=== PATIENT | female | born 1960 | race Hispanic/Latino ===

== ENCOUNTER → 2018-01-01 07:41 | Outpatient (CLI) | payer OTHER, SELFPAY | PROVIDERS: Family Provider Family Medicine; PCP Family Medicine; Visit Provider Family Medicine | DX: Z12.31 Encounter for screening mammogram for malignant neoplasm of breast (principal); Z53.9 Procedure and treatment not carried out, unspecified reason ==

== ENCOUNTER 2018-01-07 16:00 | Outpatient (RCR) | payer OTHER, SELFPAY ==
--- NOTE | 2017-11-11 10:15 | PT.OIE ---
Current Diagnoses Strain of muscle, fascia and tendon of lower back, initial encounter (11/10/17) Provider Visit Care Team Role Provider Type Krysten Aceves MD Attending Provider Non-Staff Family Provider Primary Care Provider Specialty: Medical Address: [place], [address] Email: Physical Therapy Initial Evaluation PT-OP-A Visit Information Start: 11/10/17 17:08 Freq: Status: Active Protocol: Document 11/10/17 17:09 EA (Rec: 11/10/17 17:22 EA [id number]) Out-Patient Physical Therapy Visit Information Visit Information Visit Type Initial Evaluation Visit Start Time 16:00 Visit Stop Time 16:45 Total Visit Minutes 45 Visit Number 1 PT-OP-B Current Condition Start: 11/10/17 17:08 Freq: Status: Active Protocol: Document 11/10/17 17:09 EA (Rec: 11/10/17 17:22 EA [id number]) Current Condition History of Current Condition Onset Date 6 months ago Current Complaints Difficulty with lifting d/t localized low back pain rated 4/10 History of Current Condition Pt reports low back pain gradually started after lifting injury; states pain intensifies when lifting frequency increases. Patient reports pain managed with resting; denies use of heating or cold compress. Patient reports no diganostic imaging since the pain started. Debies BLE loss of strength and abnormal sensation Pt medical history includes: Cronic neck pain, controlled HTN, depression. Prior Treatments and Tests None Future Testing and Treatments Planned None Treatment Goals Patient/Caregiver Goals Patient wants to be able to perform daily task without back pain. 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 Depression. PT-OP-C Subjective Start: 11/10/17 17:08 Freq: Status: Active Protocol: Document 11/10/17 17:09 EA (Rec: 11/10/17 17:22 EA [id number]) OP-PT Subjective Patient Comments Patient Comments Informant Daughter: Patient daughter reports patient c/o difficulty with daily task that requires lifitng due to localized back pain rated 4/10 . Patient Reported Progress Improving Patient Questionnaires Oswestry Low Back Index Oswestry Impairment 40 to 59% Impaired (Score 40- 59) PT-OP-J Posture/Palpation/Skin Start: 11/10/17 17:08 Freq: Status: Active Protocol: Document 11/10/17 17:09 EA (Rec: 11/10/17 17:39 EA [id number]) Posture Evaluation Position Standing L-Spine Posture Flattened Palpation Assessment Location One Palpation Location Paralumbars, QL Palpation Findings Soft Tissue Tightness Spasm Tenderness PT-OP-K Range of Motion Start: 11/10/17 17:08 Freq: Status: Active Protocol: Document 11/10/17 17:09 EA (Rec: 11/10/17 17:39 EA [id number]) Lumbar Spine Range of Motion Lumbar Spine Active Testing Position standing Flexion 40 Extension 20 Rotation Left 35 Rotation Right 35 Lateral Flexion Left 25 Lateral Flexion Right 25 ROM Limitations Soft Tissue Tightness Pain PT-OP-L Special Tests Start: 11/10/17 17:08 Freq: Status: Active Protocol: Document 11/10/17 17:09 EA (Rec: 11/10/17 17:39 EA [id number]) Special Tests Lumbar Spine Special Tests Other- 1 Test Results pain aggravates with prone active ext/ standing bending FWD Straight Leg Raise Test Results Pain increased at 75deg to low back bilat Vertical Spine Loading Test Results negative PT-OP-M Strength Start: 11/10/17 17:08 Freq: Status: Active Protocol: Document 11/10/17 17:09 EA (Rec: 11/10/17 17:39 EA [id number]) Trunk Strength Trunk Manual Muscle Testing Flexion 4- Good- Extension 3+ Fair+ Rotation Left 4 Good Rotation Right 4 Good Lateral Flexion Left 3+ Fair+ Lateral Flexion Right 3+ Fair+ Comments Strength test is limited by pain and therefore test is bias Hip Strength Hip Manual Muscle Testing Right Reason Not Measured WFL Left Reason Not Measured WFL PT-OP-Q Treatments Start: 11/10/17 17:08 Freq: Status: Active Protocol: Document 11/10/17 17:09 EA (Rec: 11/10/17 17:39 EA [id number]) Self-Care/Home Management Treatment Education Patient Education Body Mechanics Joint Protection Posture PT-OP-R Modalities Start: 11/10/17 17:08 Freq: Status: Active Protocol: Document 11/10/17 17:09 EA (Rec: 11/10/17 17:39 EA [id number]) Electric Stimulation Electric Stimulation Interferential Current (IFC) Body Location Paralumbars Duration (Minutes) 15 Contraction Type Normal Combined With Heat/Cold Hot Pack Hot Pack/Cold Pack Treatment Hot Pack Patient Position Prone PT-OP-T Assessment and Plan Start: 11/10/17 17:08 Freq: Status: Active Protocol: Document 11/10/17 17:09 EA (Rec: 11/10/17 17:39 EA [id number]) Physical Therapy Assessment Rehab Potential Rehabilitation Potential Good Evaluation Complexity Number of Personal Factors/Comorbidities 1-2 Number of Body Systems Impaired 1-2 Clinical Presentation at Evaluation Stable Impairments Impairments Activity Tolerance Functional Activities Pain Posture ROM Strength Other Concerns Barriers to Rehabilitation Patient ability to comply with HEP d/t language issues. Goals Four Impairment Minimal understanding with proper body mechanics and changing position Customer Relations Representative Goal (LTG) Patient will exhibit hig understanding with proper body mechanics in lifting and changing position LTG Duration 4 wks Three Impairment Grade 2 tenderness to paralumbars, QL [facility] Goal (LTG) Patient will exhibit No tenderness to lower back to improve functional mobility LTG Duration 4 wks Two Impairment Less than 10 minutes sitting tolerance Customer Relations Representative Goal (LTG) Patient will increase sitting tolerance to > 20 minutes with minimal to no pain LTG Duration 5 wks One Impairment Difficulty with floor to waist lifting due to low back pain PS of 4/10 Customer Relations Representative Goal (LTG) Patient will perform floor - waist lifting < 10 lbs w/ proper mechanics with less than 2/10 pain scale LTG Duration 4 wks Assessment Summary Assessment Pleasant 57 y/o F patient who 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 Patient may suffered from muscular strain based on medical history and special tests and mechanism of injury. Patient would benefit with skilled PT to address the aforementioned issues and be able to resume back to previous level of function. Physical Therapy Plan Frequency and Duration Frequency of Treatment 2x/Week Plan of Care Start Date 11/10/17 Plan of Care End Date 01/05/18 Therapeutic Interventions Therapeutic Interventions Home Exercise Program Joint Mobilizations Manual Therapy Patient/Caregiver Education Self-Care/Home Management Soft Tissue Mobilization Therapeutic Exercises Modalities Cold Pack/Ice Massage Electric Stimulation Hot Packs Ultrasound Next Visit Focus/Plan Next Note Type Treatment Note Next Visit Plan HEP, Back education, analgesia treatments, flexibility.
--- NOTE | 2017-11-11 10:16 | PT.OPPOC ---
Current Diagnoses Strain of muscle, fascia and tendon of lower back, initial encounter (11/10/17) Provider Visit Care Team Role Provider Type Krysten Aceves MD Attending Provider Non-Staff Family Provider Primary Care Provider Specialty: Medical Address: [address] [place] [address], [id number] Email: Plan Of Care PT-OP-T Assessment and Plan Start: 11/10/17 17:08 Freq: Status: Active Protocol: Document 11/10/17 17:09 DIANNA (Rec: 11/10/17 17:39 EA [id number]) Physical Therapy Assessment Rehab Potential Rehabilitation Potential Good Evaluation Complexity Number of Personal Factors/Comorbidities 1-2 Number of Body Systems Impaired 1-2 Clinical Presentation at Evaluation Stable Impairments Impairments Activity Tolerance Functional Activities Pain Posture ROM Strength Other Concerns Barriers to Rehabilitation Patient ability to comply with HEP d/t language issues. Goals Four Impairment Minimal understanding with proper body mechanics and changing position [employer] [place] Goal (LTG) Patient will exhibit hig understanding with proper body mechanics in lifting and changing position LTG Duration 4 wks Three Impairment Grade 2 tenderness to paralumbars, QL [facility] Goal (LTG) Patient will exhibit No tenderness to lower back to improve functional mobility LTG Duration 4 wks Two Impairment Less than 10 minutes sitting tolerance [employer] [place] Goal (LTG) Patient will increase sitting tolerance to > 20 minutes with minimal to no pain LTG Duration 5 wks One Impairment Difficulty with floor to waist lifting due to low back pain PS of 4/10 [facility] Goal (LTG) Patient will perform floor - waist lifting < 10 lbs w/ proper mechanics with less than 2/10 pain scale LTG Duration 4 wks Assessment Summary Assessment Pleasant 57 y/o F patient who 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 Patient may suffered from muscular strain based on medical history and special tests and mechanism of injury. Patient would benefit with skilled PT to address the aforementioned issues and be able to resume back to previous level of function. Physical Therapy Plan Frequency and Duration Frequency of Treatment 2x/Week Plan of Care Start Date 11/10/17 Plan of Care End Date 01/05/18 Therapeutic Interventions Therapeutic Interventions Home Exercise Program Joint Mobilizations Manual Therapy Patient/Caregiver Education Self-Care/Home Management Soft Tissue Mobilization Therapeutic Exercises Modalities Cold Pack/Ice Massage Electric Stimulation Hot Packs Ultrasound Next Visit Focus/Plan Next Note Type Treatment Note Next Visit Plan HEP, Back education, analgesia treatments, flexibility. Plan of Care Dates Plan of Care Start Date 11/10/17 Plan of Care End Date 01/05/18 Please Sign and Return: I have reviewed this Plan of Care and certify that the skilled therapy services above are required to meet the patient?s needs. Physician Signature Date Printed Name and Credentials Clinical Instructor Signature Printed Name and Credentials
--- NOTE | 2017-11-16 12:08 | PT.OTN ---
Current Diagnoses Strain of muscle, fascia and tendon of lower back, initial encounter (11/16/17) Physical Therapy Treatment Note PT-OP-A Visit Information Start: 11/10/17 17:08 Freq: Status: Active Protocol: Document 11/16/17 08:36 EA (Rec: 11/16/17 09:01 EA [id number]) Out-Patient Physical Therapy Visit Information Visit Information Visit Type Treatment Note Visit Start Time 08:15 Visit Stop Time 08:45 Total Visit Minutes 45 Visit Number 2 PT-OP-B Current Condition Start: 11/10/17 17:08 Freq: Status: Active Protocol: Document 11/10/17 17:09 EA (Rec: 11/10/17 17:22 EA [id number]) Current Condition History of Current Condition Onset Date 6 months ago Current Complaints Difficulty with lifting d/t localized low back pain rated 4/10 History of Current Condition Pt reports low back pain gradually started after lifting injury; states pain intensifies when lifting frequency increases. Patient reports pain managed with resting; denies use of heating or cold compress. Patient reports no diganostic imaging since the pain started. Debies BLE loss of strength and abnormal sensation Pt medical history includes: Cronic neck pain, controlled HTN, depression. Prior Treatments and Tests None Future Testing and Treatments Planned None Treatment Goals Patient/Caregiver Goals Patient wants to be able to perform daily task without back pain. 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 Depression. PT-OP-C Subjective Start: 11/10/17 17:08 Freq: Status: Active Protocol: Document 11/16/17 08:36 EA (Rec: 11/16/17 09:01 EA [id number]) OP-PT Subjective Patient Comments Patient Comments Patient reports low back pain increased when sleeping on stomach. Patient Reported Progress Same PT-OP-J Posture/Palpation/Skin Start: 11/10/17 17:08 Freq: Status: Active Protocol: Document 11/10/17 17:09 EA (Rec: 11/10/17 17:39 EA [id number]) Posture Evaluation Position Standing L-Spine Posture Flattened Palpation Assessment Location One Palpation Location Paralumbars, QL Palpation Findings Soft Tissue Tightness Spasm Tenderness PT-OP-K Range of Motion Start: 11/10/17 17:08 Freq: Status: Active Protocol: Document 11/10/17 17:09 EA (Rec: 11/10/17 17:39 EA [id number]) Lumbar Spine Range of Motion Lumbar Spine Active Testing Position standing Flexion 40 Extension 20 Rotation Left 35 Rotation Right 35 Lateral Flexion Left 25 Lateral Flexion Right 25 ROM Limitations Soft Tissue Tightness Pain PT-OP-L Special Tests Start: 11/10/17 17:08 Freq: Status: Active Protocol: Document 11/10/17 17:09 EA (Rec: 11/10/17 17:39 EA [id number]) Special Tests Lumbar Spine Special Tests Other- 1 Test Results pain aggravates with prone active ext/ standing bending FWD Straight Leg Raise Test Results Pain increased at 75deg to low back bilat Vertical Spine Loading Test Results negative PT-OP-M Strength Start: 11/10/17 17:08 Freq: Status: Active Protocol: Document 11/10/17 17:09 EA (Rec: 11/10/17 17:39 EA [id number]) Trunk Strength Trunk Manual Muscle Testing Flexion 4- Good- Extension 3+ Fair+ Rotation Left 4 Good Rotation Right 4 Good Lateral Flexion Left 3+ Fair+ Lateral Flexion Right 3+ Fair+ Comments Strength test is limited by pain and therefore test is bias Hip Strength Hip Manual Muscle Testing Right Reason Not Measured WFL Left Reason Not Measured WFL PT-OP-Q Treatments Start: 11/10/17 17:08 Freq: Status: Active Protocol: Document 11/16/17 08:36 EA (Rec: 11/16/17 09:01 EA [id number]) Cardio Equipment Recumbent Stepper (Sci-Fit) Duration (Minutes) 6 Resistance 1 Seat Position 8 Therapeutic Exercises Supine Exercises 5 Supine Exercise Name Lower trunk rotation with knee bent Side bilateral Reps/Minutes x 10 reps 4 Supine Exercise Name PPT with partial sit up with single leg raises Reps/Minutes x 5SH x 5 reps 3 Supine Exercise Name PPT Reps/Minutes x 5SH x 5 reps 2 Supine Exercise Name Partial sit up with PPT 1 Supine Exercise Name SKTC to DKTC Reps/Minutes x 5 SH x 5 reps Standing Exercises 2 Standing Exercise Name floor to waist lifitng with good body mechanics Resistance x 7 lbs Reps/Minutes x 3 reps 1 Standing Exercise Name sit to stand on 18 table with arm cross to chest Reps/Minutes 10 reps Manual Therapy Treatment Soft Tissue Mobilization 1 Mobilization Type Myofascial Release Sustained Pressure Intensity/Depth Moderate Body Position Prone PT-OP-R Modalities Start: 11/10/17 17:08 Freq: Status: Active Protocol: Document 11/16/17 08:36 EA (Rec: 11/16/17 09:01 EA [id number]) Electric Stimulation Electric Stimulation Interferential Current (IFC) Body Location paralumbars Duration (Minutes) 15 Patient Position Prone Combined With Heat/Cold Hot Pack Comments pillow under stomach PT-OP-T Assessment and Plan Start: 11/10/17 17:08 Freq: Status: Active Protocol: Document 11/16/17 08:36 EA (Rec: 11/16/17 09:01 EA [id number]) Physical Therapy Assessment Assessment Summary Assessment Tolerated treatment well; HEP were given with daughter to translate. Advised patient to seek doctor note for work task adjsutment as required. Physical Therapy Plan Next Visit Focus/Plan Next Note Type Treatment Note Next Visit Plan Cont with current plan.
--- NOTE | 2017-11-19 12:13 | PT.OTN ---
Current Diagnoses Strain of muscle, fascia and tendon of lower back, initial encounter (11/19/17) Physical Therapy Treatment Note PT-OP-A Visit Information Start: 11/10/17 17:08 Freq: Status: Active Protocol: Document 11/19/17 08:20 EA (Rec: 11/19/17 08:54 EA [id number]) Out-Patient Physical Therapy Visit Information Visit Information Visit Type Treatment Note Visit Start Time 08:15 Visit Stop Time 09:00 Total Visit Minutes 45 Visit Number 3 PT-OP-B Current Condition Start: 11/10/17 17:08 Freq: Status: Active Protocol: Document 11/10/17 17:09 EA (Rec: 11/10/17 17:22 EA [id number]) Current Condition History of Current Condition Onset Date 6 months ago Current Complaints Difficulty with lifting d/t localized low back pain rated 4/10 History of Current Condition Pt reports low back pain gradually started after lifting injury; states pain intensifies when lifting frequency increases. Patient reports pain managed with resting; denies use of heating or cold compress. Patient reports no diganostic imaging since the pain started. Debies BLE loss of strength and abnormal sensation Pt medical history includes: Cronic neck pain, controlled HTN, depression. Prior Treatments and Tests None Future Testing and Treatments Planned None Treatment Goals Patient/Caregiver Goals Patient wants to be able to perform daily task without back pain. 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 Depression. PT-OP-C Subjective Start: 11/10/17 17:08 Freq: Status: Active Protocol: Document 11/19/17 08:20 EA (Rec: 11/19/17 08:54 EA [id number]) OP-PT Subjective Patient Comments Patient Comments Patient reports low back is improving at this time and she has been following proper body lifting mechanics. Patient Reported Progress Improving PT-OP-J Posture/Palpation/Skin Start: 11/10/17 17:08 Freq: Status: Active Protocol: Document 11/10/17 17:09 EA (Rec: 11/10/17 17:39 EA [id number]) Posture Evaluation Position Standing L-Spine Posture Flattened Palpation Assessment Location One Palpation Location Paralumbars, QL Palpation Findings Soft Tissue Tightness Spasm Tenderness PT-OP-K Range of Motion Start: 11/10/17 17:08 Freq: Status: Active Protocol: Document 11/10/17 17:09 EA (Rec: 11/10/17 17:39 EA [id number]) Lumbar Spine Range of Motion Lumbar Spine Active Testing Position standing Flexion 40 Extension 20 Rotation Left 35 Rotation Right 35 Lateral Flexion Left 25 Lateral Flexion Right 25 ROM Limitations Soft Tissue Tightness Pain PT-OP-L Special Tests Start: 11/10/17 17:08 Freq: Status: Active Protocol: Document 11/10/17 17:09 EA (Rec: 11/10/17 17:39 EA [id number]) Special Tests Lumbar Spine Special Tests Other- 1 Test Results pain aggravates with prone active ext/ standing bending FWD Straight Leg Raise Test Results Pain increased at 75deg to low back bilat Vertical Spine Loading Test Results negative PT-OP-M Strength Start: 11/10/17 17:08 Freq: Status: Active Protocol: Document 11/10/17 17:09 EA (Rec: 11/10/17 17:39 EA [id number]) Trunk Strength Trunk Manual Muscle Testing Flexion 4- Good- Extension 3+ Fair+ Rotation Left 4 Good Rotation Right 4 Good Lateral Flexion Left 3+ Fair+ Lateral Flexion Right 3+ Fair+ Comments Strength test is limited by pain and therefore test is bias Hip Strength Hip Manual Muscle Testing Right Reason Not Measured WFL Left Reason Not Measured WFL PT-OP-Q Treatments Start: 11/10/17 17:08 Freq: Status: Active Protocol: Document 11/19/17 08:20 EA (Rec: 11/19/17 08:54 EA [id number]) Cardio Equipment Recumbent Stepper (Sci-Fit) Duration (Minutes) 6 Resistance 1 Seat Position 8 Therapeutic Exercises Supine Exercises 5 Supine Exercise Name Lower trunk rotation with knee bent Side bilateral Reps/Minutes x 10 reps 4 Supine Exercise Name PPT with partial sit up with single leg raises Reps/Minutes x 5SH x 5 reps 3 Supine Exercise Name PPT and marching Reps/Minutes x 5SH x 5 reps 2 Supine Exercise Name Partial sit up with PPT 1 Supine Exercise Name SKTC to DKTC Reps/Minutes x 5 SH x 5 reps Standing Exercises 2 Standing Exercise Name wall squat with PPT Reps/Minutes x 5sh x 5 reps x 2 sets 1 Standing Exercise Name sit to stand on 18 table with arm cross to chest Reps/Minutes 10 reps Manual Therapy Treatment Soft Tissue Mobilization 1 Mobilization Type Myofascial Release Sustained Pressure Intensity/Depth Moderate Body Position Prone PT-OP-R Modalities Start: 11/10/17 17:08 Freq: Status: Active Protocol: Document 11/19/17 08:54 EA (Rec: 11/19/17 08:55 EA [id number]) Electric Stimulation Electric Stimulation Interferential Current (IFC) Body Location paralumbars Duration (Minutes) 15 Patient Position Prone Combined With Heat/Cold Hot Pack Comments pillow under stomach PT-OP-T Assessment and Plan Start: 11/10/17 17:08 Freq: Status: Active Protocol: Document 11/19/17 08:20 EA (Rec: 11/19/17 08:54 EA [id number]) Physical Therapy Assessment Assessment Summary Assessment Tolerated treatment well. Noted less tender to paralumbars and upper gluteals . Patient is progressing well . Cont with current plan. Advance as tolerated. Physical Therapy Plan Next Visit Focus/Plan Next Note Type Treatment Note Next Visit Plan Advance as tolerated.
--- NOTE | 2017-11-24 16:09 | PT.OTN ---
Current Diagnoses Strain of muscle, fascia and tendon of lower back, initial encounter (11/24/17) Physical Therapy Treatment Note PT-OP-A Visit Information Start: 11/10/17 17:08 Freq: Status: Active Protocol: Document 11/24/17 15:20 EA (Rec: 11/24/17 15:52 EA [id number]) Out-Patient Physical Therapy Visit Information Visit Information Visit Type Treatment Note Visit Start Time 15:15 Visit Stop Time 16:00 Total Visit Minutes 45 Visit Number 3 PT-OP-B Current Condition Start: 11/10/17 17:08 Freq: Status: Active Protocol: Document 11/10/17 17:09 EA (Rec: 11/10/17 17:22 EA [id number]) Current Condition History of Current Condition Onset Date 6 months ago Current Complaints Difficulty with lifting d/t localized low back pain rated 4/10 History of Current Condition Pt reports low back pain gradually started after lifting injury; states pain intensifies when lifting frequency increases. Patient reports pain managed with resting; denies use of heating or cold compress. Patient reports no diganostic imaging since the pain started. Debies BLE loss of strength and abnormal sensation Pt medical history includes: Cronic neck pain, controlled HTN, depression. Prior Treatments and Tests None Future Testing and Treatments Planned None Treatment Goals Patient/Caregiver Goals Patient wants to be able to perform daily task without back pain. 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 Depression. PT-OP-C Subjective Start: 11/10/17 17:08 Freq: Status: Active Protocol: Document 11/24/17 15:20 EA (Rec: 11/24/17 15:52 EA [id number]) OP-PT Subjective Patient Comments Patient Comments Pt reports much less pain at this time; states that she is much feeling better. Patient Reported Progress Improving PT-OP-J Posture/Palpation/Skin Start: 11/10/17 17:08 Freq: Status: Active Protocol: Document 11/10/17 17:09 EA (Rec: 11/10/17 17:39 EA [id number]) Posture Evaluation Position Standing L-Spine Posture Flattened Palpation Assessment Location One Palpation Location [place], QL Palpation Findings Soft Tissue Tightness Spasm Tenderness PT-OP-K Range of Motion Start: 11/10/17 17:08 Freq: Status: Active Protocol: Document 11/10/17 17:09 EA (Rec: 11/10/17 17:39 EA [id number]) Lumbar Spine Range of Motion Lumbar Spine Active Testing Position standing Flexion 40 Extension 20 Rotation Left 35 Rotation Right 35 Lateral Flexion Left 25 Lateral Flexion Right 25 ROM Limitations Soft Tissue Tightness Pain PT-OP-L Special Tests Start: 11/10/17 17:08 Freq: Status: Active Protocol: Document 11/10/17 17:09 EA (Rec: 11/10/17 17:39 EA [id number]) Special Tests Lumbar Spine Special Tests Other- 1 Test Results pain aggravates with prone active ext/ standing bending FWD Straight Leg Raise Test Results Pain increased at 75deg to low back bilat Vertical Spine Loading Test Results negative PT-OP-M Strength Start: 11/10/17 17:08 Freq: Status: Active Protocol: Document 11/10/17 17:09 EA (Rec: 11/10/17 17:39 EA [id number]) Trunk Strength Trunk Manual Muscle Testing Flexion 4- Good- Extension 3+ Fair+ Rotation Left 4 Good Rotation Right 4 Good Lateral Flexion Left 3+ Fair+ Lateral Flexion Right 3+ Fair+ Comments Strength test is limited by pain and therefore test is bias Hip Strength Hip Manual Muscle Testing Right Reason Not Measured WFL Left Reason Not Measured WFL PT-OP-Q Treatments Start: 11/10/17 17:08 Freq: Status: Active Protocol: Document 11/24/17 15:20 EA (Rec: 11/24/17 15:52 EA [id number]) Cardio Equipment Recumbent Stepper (Sci-Fit) Duration (Minutes) 6 Resistance 1 Seat Position 8 Therapeutic Exercises Supine Exercises 5 Supine Exercise Name Lower trunk rotation with knee bent Side bilateral Reps/Minutes x 10 reps 4 Supine Exercise Name PPT with partial sit up with single leg raises Reps/Minutes x 5SH x 5 reps 3 Supine Exercise Name PPT and marching Reps/Minutes x 5SH x 5 reps 2 Supine Exercise Name Partial sit up with PPT 1 Supine Exercise Name SKTC to DKTC Reps/Minutes x 5 SH x 5 reps Standing Exercises 3 Standing Exercise Name floor to waist lift Resistance 10-20lbs Reps/Minutes x 5 x 2 sets 2 Standing Exercise Name wall squat with PPT Reps/Minutes x 5sh x 5 reps x 2 sets 1 Standing Exercise Name sit to stand on 18 table with arm cross to chest Reps/Minutes 10 reps Manual Therapy Treatment Soft Tissue Mobilization 1 Mobilization Type Myofascial Release Sustained Pressure Intensity/Depth Moderate Body Position Prone PT-OP-R Modalities Start: 11/10/17 17:08 Freq: Status: Active Protocol: Document 11/24/17 15:20 EA (Rec: 11/24/17 15:52 EA [id number]) Electric Stimulation Electric Stimulation Interferential Current (IFC) Body Location paralumbars Duration (Minutes) 15 Patient Position Prone Combined With Heat/Cold Hot Pack Comments pillow under stomach PT-OP-T Assessment and Plan Start: 11/10/17 17:08 Freq: Status: Active Protocol: Document 11/24/17 15:20 EA (Rec: 11/24/17 15:52 EA [id number]) Physical Therapy Assessment Assessment Summary Assessment Pt is progressing well as to functional mobility at home and at work. Patient to see after 1 week. Physical Therapy Plan Next Visit Focus/Plan Next Note Type Treatment Note Next Visit Plan Advance as tolerated.
--- NOTE | 2017-12-01 16:09 | PT.OTN ---
Current Diagnoses Strain of muscle, fascia and tendon of lower back, initial encounter (12/01/17) Physical Therapy Treatment Note PT-OP-A Visit Information Start: 11/10/17 17:08 Freq: Status: Active Protocol: Document 12/01/17 15:55 EA (Rec: 12/01/17 16:07 EA [id number]) Out-Patient Physical Therapy Visit Information Visit Information Visit Type Treatment Note Visit Start Time 15:15 Visit Stop Time 16:00 Total Visit Minutes 45 Visit Number 5 PT-OP-B Current Condition Start: 11/10/17 17:08 Freq: Status: Active Protocol: Document 11/10/17 17:09 EA (Rec: 11/10/17 17:22 EA [id number]) Current Condition History of Current Condition Onset Date 6 months ago Current Complaints Difficulty with lifting d/t localized low back pain rated 4/10 History of Current Condition Pt reports low back pain gradually started after lifting injury; states pain intensifies when lifting frequency increases. Patient reports pain managed with resting; denies use of heating or cold compress. Patient reports no diganostic imaging since the pain started. Debies BLE loss of strength and abnormal sensation Pt medical history includes: Cronic neck pain, controlled HTN, depression. Prior Treatments and Tests None Future Testing and Treatments Planned None Treatment Goals Patient/Caregiver Goals Patient wants to be able to perform daily task without back pain. 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 Depression. PT-OP-C Subjective Start: 11/10/17 17:08 Freq: Status: Active Protocol: Document 12/01/17 15:55 EA (Rec: 12/01/17 16:07 EA [id number]) OP-PT Subjective Patient Comments Patient Comments Pt reports that she hurt her low back again at work after lifting with rotation yesterday. Denies loss of function to both LE and numbness/tingling sensation. Patient Reported Progress Same PT-OP-J Posture/Palpation/Skin Start: 11/10/17 17:08 Freq: Status: Active Protocol: Document 11/10/17 17:09 EA (Rec: 11/10/17 17:39 EA [id number]) Posture Evaluation Position Standing L-Spine Posture Flattened Palpation Assessment Location One Palpation Location [place], QL Palpation Findings Soft Tissue Tightness Spasm Tenderness PT-OP-K Range of Motion Start: 11/10/17 17:08 Freq: Status: Active Protocol: Document 11/10/17 17:09 EA (Rec: 11/10/17 17:39 EA [id number]) Lumbar Spine Range of Motion Lumbar Spine Active Testing Position standing Flexion 40 Extension 20 Rotation Left 35 Rotation Right 35 Lateral Flexion Left 25 Lateral Flexion Right 25 ROM Limitations Soft Tissue Tightness Pain PT-OP-L Special Tests Start: 11/10/17 17:08 Freq: Status: Active Protocol: Document 11/10/17 17:09 EA (Rec: 11/10/17 17:39 EA [id number]) Special Tests Lumbar Spine Special Tests Other- 1 Test Results pain aggravates with prone active ext/ standing bending FWD Straight Leg Raise Test Results Pain increased at 75deg to low back bilat Vertical Spine Loading Test Results negative PT-OP-M Strength Start: 11/10/17 17:08 Freq: Status: Active Protocol: Document 11/10/17 17:09 EA (Rec: 11/10/17 17:39 EA [id number]) Trunk Strength Trunk Manual Muscle Testing Flexion 4- Good- Extension 3+ Fair+ Rotation Left 4 Good Rotation Right 4 Good Lateral Flexion Left 3+ Fair+ Lateral Flexion Right 3+ Fair+ Comments Strength test is limited by pain and therefore test is bias Hip Strength Hip Manual Muscle Testing Right Reason Not Measured WFL Left Reason Not Measured WFL PT-OP-Q Treatments Start: 11/10/17 17:08 Freq: Status: Active Protocol: Document 12/01/17 15:55 EA (Rec: 12/01/17 16:07 EA [id number]) Therapeutic Exercises Supine Exercises 5 Supine Exercise Name Lower trunk rotation with knee bent Side bilateral Reps/Minutes x 10 reps 4 Supine Exercise Name PPT with partial sit up with single leg raises Reps/Minutes x 5SH x 5 reps 1 Supine Exercise Name SKTC to DKTC Reps/Minutes x 5 SH x 5 reps Manual Therapy Treatment Soft Tissue Mobilization 1 Mobilization Type Myofascial Release Sustained Pressure Intensity/Depth Moderate Body Position Prone PT-OP-R Modalities Start: 11/10/17 17:08 Freq: Status: Active Protocol: Document 12/01/17 15:55 EA (Rec: 12/01/17 16:07 EA [id number]) Electric Stimulation Electric Stimulation Interferential Current (IFC) Body Location paralumbars Duration (Minutes) 15 Patient Position Prone Combined With Heat/Cold Hot Pack Comments pillow under stomach PT-OP-T Assessment and Plan Start: 11/10/17 17:08 Freq: Status: Active Protocol: Document 12/01/17 15:55 EA (Rec: 12/01/17 16:07 EA [id number]) Physical Therapy Assessment Assessment Summary Assessment Quick assessment performed and reveals grade 2 tenderness recurrence to right paraspinal ; no signs of nerve involvement. Patient was re- educated again with lifting mechanics and advised to no more than 10 lbs lifting up to weeks with letter to carry at work. Patient was advised to apply ice at home. Patient understood recommendation with the help of her daughter. Physical Therapy Plan Next Visit Focus/Plan Next Note Type Treatment Note Next Visit Plan Cont with current treatment
--- NOTE | 2017-12-08 17:33 | PT.OTN ---
Current Diagnoses Strain of muscle, fascia and tendon of lower back, initial encounter (12/08/17) Physical Therapy Treatment Note PT-OP-A Visit Information Start: 11/10/17 17:08 Freq: Status: Active Protocol: Document 12/08/17 15:22 EA (Rec: 12/08/17 15:50 EA [id number]) Out-Patient Physical Therapy Visit Information Visit Information Visit Type Treatment Note Visit Start Time 15:15 Visit Stop Time 16:00 Total Visit Minutes 45 Visit Number 5 PT-OP-B Current Condition Start: 11/10/17 17:08 Freq: Status: Active Protocol: Document 11/10/17 17:09 EA (Rec: 11/10/17 17:22 EA [id number]) Current Condition History of Current Condition Onset Date 6 months ago Current Complaints Difficulty with lifting d/t localized low back pain rated 4/10 History of Current Condition Pt reports low back pain gradually started after lifting injury; states pain intensifies when lifting frequency increases. Patient reports pain managed with resting; denies use of heating or cold compress. Patient reports no diganostic imaging since the pain started. Debies BLE loss of strength and abnormal sensation Pt medical history includes: Cronic neck pain, controlled HTN, depression. Prior Treatments and Tests None Future Testing and Treatments Planned None Treatment Goals Patient/Caregiver Goals Patient wants to be able to perform daily task without back pain. 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 Depression. PT-OP-C Subjective Start: 11/10/17 17:08 Freq: Status: Active Protocol: Document 12/08/17 15:51 EA (Rec: 12/08/17 15:52 EA [id number]) OP-PT Subjective Patient Comments Patient Comments Patient reports low back pain complaint is improving; states pain rated 3/10. Denies radiation to both legs. Patient Reported Progress Improving PT-OP-J Posture/Palpation/Skin Start: 11/10/17 17:08 Freq: Status: Active Protocol: Document 11/10/17 17:09 EA (Rec: 11/10/17 17:39 EA [id number]) Posture Evaluation Position Standing L-Spine Posture Flattened Palpation Assessment Location One Palpation Location [place], QL Palpation Findings Soft Tissue Tightness Spasm Tenderness PT-OP-K Range of Motion Start: 11/10/17 17:08 Freq: Status: Active Protocol: Document 11/10/17 17:09 EA (Rec: 11/10/17 17:39 EA [id number]) Lumbar Spine Range of Motion Lumbar Spine Active Testing Position standing Flexion 40 Extension 20 Rotation Left 35 Rotation Right 35 Lateral Flexion Left 25 Lateral Flexion Right 25 ROM Limitations Soft Tissue Tightness Pain PT-OP-L Special Tests Start: 11/10/17 17:08 Freq: Status: Active Protocol: Document 11/10/17 17:09 EA (Rec: 11/10/17 17:39 EA [id number]) Special Tests Lumbar Spine Special Tests Other- 1 Test Results pain aggravates with prone active ext/ standing bending FWD Straight Leg Raise Test Results Pain increased at 75deg to low back bilat Vertical Spine Loading Test Results negative PT-OP-M Strength Start: 11/10/17 17:08 Freq: Status: Active Protocol: Document 11/10/17 17:09 EA (Rec: 11/10/17 17:39 EA [id number]) Trunk Strength Trunk Manual Muscle Testing Flexion 4- Good- Extension 3+ Fair+ Rotation Left 4 Good Rotation Right 4 Good Lateral Flexion Left 3+ Fair+ Lateral Flexion Right 3+ Fair+ Comments Strength test is limited by pain and therefore test is bias Hip Strength Hip Manual Muscle Testing Right Reason Not Measured WFL Left Reason Not Measured WFL PT-OP-Q Treatments Start: 11/10/17 17:08 Freq: Status: Active Protocol: Document 12/08/17 15:22 EA (Rec: 12/08/17 15:50 EA [id number]) Therapeutic Exercises Supine Exercises 5 Supine Exercise Name Lower trunk rotation with knee bent Side bilateral Reps/Minutes x 10 reps 4 Supine Exercise Name PPT with partial sit up with single leg raises Reps/Minutes x 5SH x 5 reps 3 Supine Exercise Name PPT and marching Reps/Minutes x 5SH x 5 reps 2 Supine Exercise Name Partial sit up with PPT 1 Supine Exercise Name SKTC to DKTC Reps/Minutes x 5 SH x 5 reps Standing Exercises 2 Standing Exercise Name wall squat with PPT Reps/Minutes x 5sh x 5 reps x 2 sets 1 Standing Exercise Name sit to stand on 18 table with arm cross to chest Reps/Minutes 10 reps Manual Therapy Treatment Soft Tissue Mobilization 1 Mobilization Type Myofascial Release Sustained Pressure Intensity/Depth Moderate Body Position Prone PT-OP-R Modalities Start: 11/10/17 17:08 Freq: Status: Active Protocol: Document 12/08/17 15:22 EA (Rec: 12/08/17 15:50 EA [id number]) Electric Stimulation Electric Stimulation Interferential Current (IFC) Body Location paralumbars Duration (Minutes) 15 Patient Position Prone Combined With Heat/Cold Hot Pack Comments pillow under stomach PT-OP-T Assessment and Plan Start: 11/10/17 17:08 Freq: Status: Active Protocol: Document 12/08/17 15:22 EA (Rec: 12/08/17 15:50 EA [id number]) Physical Therapy Assessment Assessment Summary Assessment Patient had less guarding and improved soft tissue mobility after manual PT. Patient is progressing well.
--- NOTE | 2017-12-14 17:14 | PT.OTN ---
Current Diagnoses Strain of muscle, fascia and tendon of lower back, initial encounter (12/14/17) Physical Therapy Treatment Note PT-OP-A Visit Information Start: 11/10/17 17:08 Freq: Status: Active Protocol: Document 12/14/17 16:44 EA (Rec: 12/14/17 16:45 EA [id number]) Out-Patient Physical Therapy Visit Information Visit Information Visit Type Treatment Note Visit Start Time 16:00 Visit Stop Time 16:45 Total Visit Minutes 45 Visit Number 6 PT-OP-B Current Condition Start: 11/10/17 17:08 Freq: Status: Active Protocol: Document 11/10/17 17:09 EA (Rec: 11/10/17 17:22 EA [id number]) Current Condition History of Current Condition Onset Date 6 months ago Current Complaints Difficulty with lifting d/t localized low back pain rated 4/10 History of Current Condition Pt reports low back pain gradually started after lifting injury; states pain intensifies when lifting frequency increases. Patient reports pain managed with resting; denies use of heating or cold compress. Patient reports no diganostic imaging since the pain started. Debies BLE loss of strength and abnormal sensation Pt medical history includes: Cronic neck pain, controlled HTN, depression. Prior Treatments and Tests None Future Testing and Treatments Planned None Treatment Goals Patient/Caregiver Goals Patient wants to be able to perform daily task without back pain. 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 Depression. PT-OP-C Subjective Start: 11/10/17 17:08 Freq: Status: Active Protocol: Document 12/14/17 16:44 EA (Rec: 12/14/17 16:45 EA [id number]) OP-PT Subjective Patient Comments Patient Comments Pt reports back is getting much better. Patient Reported Progress Improving PT-OP-J Posture/Palpation/Skin Start: 11/10/17 17:08 Freq: Status: Active Protocol: Document 11/10/17 17:09 EA (Rec: 11/10/17 17:39 EA [id number]) Posture Evaluation Position Standing L-Spine Posture Flattened Palpation Assessment Location One Palpation Location [place], QL Palpation Findings Soft Tissue Tightness Spasm Tenderness PT-OP-K Range of Motion Start: 11/10/17 17:08 Freq: Status: Active Protocol: Document 11/10/17 17:09 EA (Rec: 11/10/17 17:39 EA [id number]) Lumbar Spine Range of Motion Lumbar Spine Active Testing Position standing Flexion 40 Extension 20 Rotation Left 35 Rotation Right 35 Lateral Flexion Left 25 Lateral Flexion Right 25 ROM Limitations Soft Tissue Tightness Pain PT-OP-L Special Tests Start: 11/10/17 17:08 Freq: Status: Active Protocol: Document 11/10/17 17:09 EA (Rec: 11/10/17 17:39 EA [id number]) Special Tests Lumbar Spine Special Tests Other- 1 Test Results pain aggravates with prone active ext/ standing bending FWD Straight Leg Raise Test Results Pain increased at 75deg to low back bilat Vertical Spine Loading Test Results negative PT-OP-M Strength Start: 11/10/17 17:08 Freq: Status: Active Protocol: Document 11/10/17 17:09 EA (Rec: 11/10/17 17:39 EA [id number]) Trunk Strength Trunk Manual Muscle Testing Flexion 4- Good- Extension 3+ Fair+ Rotation Left 4 Good Rotation Right 4 Good Lateral Flexion Left 3+ Fair+ Lateral Flexion Right 3+ Fair+ Comments Strength test is limited by pain and therefore test is bias Hip Strength Hip Manual Muscle Testing Right Reason Not Measured WFL Left Reason Not Measured WFL PT-OP-Q Treatments Start: 11/10/17 17:08 Freq: Status: Active Protocol: Document 12/14/17 15:55 EA (Rec: 12/14/17 16:44 EA [id number]) Cardio Equipment Recumbent Stepper (Sci-Fit) Duration (Minutes) 6 Resistance 1 Seat Position 8 Other warmup Therapeutic Exercises Supine Exercises 5 Supine Exercise Name Lower trunk rotation with knee bent Side bilateral Reps/Minutes x 10 reps 4 Supine Exercise Name PPT with partial sit up with single leg raises Reps/Minutes x 5SH x 5 reps 3 Supine Exercise Name PPT and marching Reps/Minutes x 5SH x 5 reps 2 Supine Exercise Name Partial sit up with PPT 1 Supine Exercise Name SKTC to DKTC Reps/Minutes x 5 SH x 5 reps Prone Exercises 2 Prone Exercise Name Winston extnsion alternate Reps/Minutes x 10 reps x 2 sets Standing Exercises 3 Standing Exercise Name floor to waist lift Resistance 10-20lbs Reps/Minutes x 5 x 2 sets 2 Standing Exercise Name wall squat with PPT Reps/Minutes x 5sh x 5 reps x 2 sets PT-OP-R Modalities Start: 11/10/17 17:08 Freq: Status: Active Protocol: Document 12/14/17 16:44 EA (Rec: 12/14/17 16:45 EA [id number]) Electric Stimulation Electric Stimulation Interferential Current (IFC) Body Location paralumbars Duration (Minutes) 15 Patient Position Prone Combined With Heat/Cold Hot Pack Comments pillow under stomach PT-OP-T Assessment and Plan Start: 11/10/17 17:08 Freq: Status: Active Protocol: Document 12/14/17 15:55 EA (Rec: 12/14/17 16:44 EA [id number]) Physical Therapy Assessment Assessment Summary Assessment Tolerated treatment well. Pt cont. to progress. Recommends once a week a this time. Physical Therapy Plan Next Visit Focus/Plan Next Note Type Treatment Note Next Visit Plan Cont with current treatment
--- NOTE | 2017-12-24 16:44 | PT.OTN ---
Current Diagnoses Strain of muscle, fascia and tendon of lower back, initial encounter (12/24/17) Physical Therapy Treatment Note PT-OP-A Visit Information Start: 11/10/17 17:08 Freq: Status: Active Protocol: Document 12/24/17 16:37 EA (Rec: 12/24/17 16:43 EA [id number]) Out-Patient Physical Therapy Visit Information Visit Information Visit Type Treatment Note Visit Start Time 16:00 Visit Stop Time 16:45 Total Visit Minutes 45 Visit Number 7 PT-OP-B Current Condition Start: 11/10/17 17:08 Freq: Status: Active Protocol: Document 11/10/17 17:09 EA (Rec: 11/10/17 17:22 EA [id number]) Current Condition History of Current Condition Onset Date 6 months ago Current Complaints Difficulty with lifting d/t localized low back pain rated 4/10 History of Current Condition Pt reports low back pain gradually started after lifting injury; states pain intensifies when lifting frequency increases. Patient reports pain managed with resting; denies use of heating or cold compress. Patient reports no diganostic imaging since the pain started. Debies BLE loss of strength and abnormal sensation Pt medical history includes: Cronic neck pain, controlled HTN, depression. Prior Treatments and Tests None Future Testing and Treatments Planned None Treatment Goals Patient/Caregiver Goals Patient wants to be able to perform daily task without back pain. Prior Functional Status Baseline Function- ADL's Independent Baseline Function- Mobility Independent Baseline Function- Other 6 months ago able to perform daily task without pain complaint Current Functional Impairments (Reported) Functional Limitations- ADL's Lifitng, sitting tolerance Functional Limitations- Other mild/mod difficulty with lifting Personal Factors Other Personal Factors That May Effect Language barrier that requires Therapy/Recovery captain's assistant; Daughter to come in to help during session. Depression. PT-OP-C Subjective Start: 11/10/17 17:08 Freq: Status: Active Protocol: Document 12/24/17 16:37 EA (Rec: 12/24/17 16:43 EA [id number]) OP-PT Subjective Patient Comments Patient Comments Patient reports very slight pain only at right upper lumbar. Patient Reported Progress Improving PT-OP-J Posture/Palpation/Skin Start: 11/10/17 17:08 Freq: Status: Active Protocol: Document 11/10/17 17:09 EA (Rec: 11/10/17 17:39 EA [id number]) Posture Evaluation Position Standing L-Spine Posture Flattened Palpation Assessment Location One Palpation Location Paralumbars, QL Palpation Findings Soft Tissue Tightness Spasm Tenderness PT-OP-K Range of Motion Start: 11/10/17 17:08 Freq: Status: Active Protocol: Document 11/10/17 17:09 EA (Rec: 11/10/17 17:39 EA [id number]) Lumbar Spine Range of Motion Lumbar Spine Active Testing Position standing Flexion 40 Extension 20 Rotation Left 35 Rotation Right 35 Lateral Flexion Left 25 Lateral Flexion Right 25 ROM Limitations Soft Tissue Tightness Pain PT-OP-L Special Tests Start: 11/10/17 17:08 Freq: Status: Active Protocol: Document 11/10/17 17:09 EA (Rec: 11/10/17 17:39 EA [id number]) Special Tests Lumbar Spine Special Tests Other- 1 Test Results pain aggravates with prone active ext/ standing bending FWD Straight Leg Raise Test Results Pain increased at 75deg to low back bilat Vertical Spine Loading Test Results negative PT-OP-M Strength Start: 11/10/17 17:08 Freq: Status: Active Protocol: Document 11/10/17 17:09 EA (Rec: 11/10/17 17:39 EA [id number]) Trunk Strength Trunk Manual Muscle Testing Flexion 4- Good- Extension 3+ Fair+ Rotation Left 4 Good Rotation Right 4 Good Lateral Flexion Left 3+ Fair+ Lateral Flexion Right 3+ Fair+ Comments Strength test is limited by pain and therefore test is bias Hip Strength Hip Manual Muscle Testing Right Reason Not Measured WFL Left Reason Not Measured WFL PT-OP-Q Treatments Start: 11/10/17 17:08 Freq: Status: Active Protocol: Document 12/24/17 16:37 EA (Rec: 12/24/17 16:43 EA [id number]) Cardio Equipment Recumbent Stepper (Sci-Fit) Duration (Minutes) 6 Resistance 1 Seat Position 8 Other warmup Therapeutic Exercises Supine Exercises 5 Supine Exercise Name Lower trunk rotation with knee bent Side bilateral Reps/Minutes x 10 reps 3 Supine Exercise Name PPT and marching Reps/Minutes x 5SH x 5 reps Manual Therapy Treatment Soft Tissue Mobilization 1 Body Location Right upper lumbars and low parathoracis Mobilization Type Myofascial Release Sustained Pressure Intensity/Depth Moderate Body Position Prone PT-OP-R Modalities Start: 11/10/17 17:08 Freq: Status: Active Protocol: Document 12/24/17 16:43 EA (Rec: 12/24/17 16:44 EA [id number]) Electric Stimulation Electric Stimulation Interferential Current (IFC) Body Location paralumbars Duration (Minutes) 15 Patient Position Prone Combined With Heat/Cold Hot Pack Comments pillow under stomach Ultrasound Therapy Treatment Left Lower Medial Back Treatment Duration (minutes) 5 Coupling Medium Ultrasound Gel Frequency Setting (mHz) 1 Mode Setting Continuous Intensity Setting (w/cm2) 1.2 PT-OP-T Assessment and Plan Start: 11/10/17 17:08 Freq: Status: Active Protocol: Document 12/24/17 16:37 EA (Rec: 12/24/17 16:43 EA [id number]) Physical Therapy Assessment Assessment Summary Assessment Patient had less tenderness after session. Patient is progressing well Physical Therapy Plan Next Visit Focus/Plan Next Note Type Treatment Note Next Visit Plan Advance as tolerated.
--- NOTE | 2017-12-31 16:33 | PT.OTN ---
Current Diagnoses Strain of muscle, fascia and tendon of lower back, initial encounter (12/31/17) Physical Therapy Treatment Note PT-OP-A Visit Information Start: 11/10/17 17:08 Freq: Status: Active Protocol: Document 12/31/17 16:25 EA (Rec: 12/31/17 16:32 EA [id number]) Out-Patient Physical Therapy Visit Information Visit Information Visit Type Treatment Note Visit Start Time 16:00 Visit Stop Time 16:45 Total Visit Minutes 45 Visit Number 8 PT-OP-B Current Condition Start: 11/10/17 17:08 Freq: Status: Active Protocol: Document 11/10/17 17:09 EA (Rec: 11/10/17 17:22 EA [id number]) Current Condition History of Current Condition Onset Date 6 months ago Current Complaints Difficulty with lifting d/t localized low back pain rated 4/10 History of Current Condition Pt reports low back pain gradually started after lifting injury; states pain intensifies when lifting frequency increases. Patient reports pain managed with resting; denies use of heating or cold compress. Patient reports no diganostic imaging since the pain started. Debies BLE loss of strength and abnormal sensation Pt medical history includes: Cronic neck pain, controlled HTN, depression. Prior Treatments and Tests None Future Testing and Treatments Planned None Treatment Goals Patient/Caregiver Goals Patient wants to be able to perform daily task without back pain. Prior Functional Status Baseline Function- ADL's Independent Baseline Function- Mobility Independent Baseline Function- Other 6 months ago able to perform daily task without pain complaint Current Functional Impairments (Reported) Functional Limitations- ADL's Lifitng, sitting tolerance Functional Limitations- Other mild/mod difficulty with lifting Personal Factors Other Personal Factors That May Effect Language barrier that requires Therapy/Recovery timber buyer; Daughter to come in to help during session. Depression. PT-OP-C Subjective Start: 11/10/17 17:08 Freq: Status: Active Protocol: Document 12/31/17 16:25 EA (Rec: 12/31/17 16:32 EA [id number]) OP-PT Subjective Patient Comments Patient Comments Patient reports that she has been compliant with HEP; states performed work task with not much limitation. Overall she feels that she has been improved. Pt also reports that she likes that last treatment as she feels moer improvement from last session. PT-OP-J Posture/Palpation/Skin Start: 11/10/17 17:08 Freq: Status: Active Protocol: Document 11/10/17 17:09 EA (Rec: 11/10/17 17:39 EA [id number]) Posture Evaluation Position Standing L-Spine Posture Flattened Palpation Assessment Location One Palpation Location Paralumbars, QL Palpation Findings Soft Tissue Tightness Spasm Tenderness PT-OP-K Range of Motion Start: 11/10/17 17:08 Freq: Status: Active Protocol: Document 11/10/17 17:09 EA (Rec: 11/10/17 17:39 EA [id number]) Lumbar Spine Range of Motion Lumbar Spine Active Testing Position standing Flexion 40 Extension 20 Rotation Left 35 Rotation Right 35 Lateral Flexion Left 25 Lateral Flexion Right 25 ROM Limitations Soft Tissue Tightness Pain PT-OP-L Special Tests Start: 11/10/17 17:08 Freq: Status: Active Protocol: Document 11/10/17 17:09 EA (Rec: 11/10/17 17:39 EA [id number]) Special Tests Lumbar Spine Special Tests Other- 1 Test Results pain aggravates with prone active ext/ standing bending FWD Straight Leg Raise Test Results Pain increased at 75deg to low back bilat Vertical Spine Loading Test Results negative PT-OP-M Strength Start: 11/10/17 17:08 Freq: Status: Active Protocol: Document 11/10/17 17:09 EA (Rec: 11/10/17 17:39 EA [id number]) Trunk Strength Trunk Manual Muscle Testing Flexion 4- Good- Extension 3+ Fair+ Rotation Left 4 Good Rotation Right 4 Good Lateral Flexion Left 3+ Fair+ Lateral Flexion Right 3+ Fair+ Comments Strength test is limited by pain and therefore test is bias Hip Strength Hip Manual Muscle Testing Right Reason Not Measured WFL Left Reason Not Measured WFL PT-OP-Q Treatments Start: 11/10/17 17:08 Freq: Status: Active Protocol: Document 12/31/17 16:25 EA (Rec: 12/31/17 16:32 EA [id number]) Manual Therapy Treatment Soft Tissue Mobilization 1 Body Location Right upper lumbars and low parathoracis Mobilization Type Myofascial Release Sustained Pressure Intensity/Depth Moderate Body Position Prone PT-OP-R Modalities Start: 11/10/17 17:08 Freq: Status: Active Protocol: Document 12/31/17 16:25 EA (Rec: 12/31/17 16:32 EA [id number]) Electric Stimulation Electric Stimulation Interferential Current (IFC) Body Location paralumbars Duration (Minutes) 15 Patient Position Prone Combined With Heat/Cold Hot Pack Comments pillow under stomach Hot Pack/Cold Pack Treatment Hot Pack Location Paralumbars and low thoracic Patient Position Prone Treatment Duration (minutes) 10 Patient Tolerance Good Ultrasound Therapy Treatment Left Lower Medial Back Treatment Duration (minutes) 5 Coupling Medium Ultrasound Gel Frequency Setting (mHz) 1 Mode Setting Continuous Intensity Setting (w/cm2) 1.2 PT-OP-T Assessment and Plan Start: 11/10/17 17:08 Freq: Status: Active Protocol: Document 12/31/17 16:25 EA (Rec: 12/31/17 16:32 EA [id number]) Physical Therapy Assessment Assessment Summary Assessment Patient continue to progress as to pain and mobility. Patient to discharge next visit to [facility] if no more complaint.
--- NOTE | 2018-01-07 16:41 | PT.OTN ---
Current Diagnoses Strain of muscle, fascia and tendon of lower back, initial encounter (01/07/18) Physical Therapy Treatment Note PT-OP-A Visit Information Start: 11/10/17 17:08 Freq: Status: Active Protocol: Document 01/07/18 16:29 EA (Rec: 01/07/18 16:39 EA [id number]) Out-Patient Physical Therapy Visit Information Visit Information Visit Type Treatment Note Visit Start Time 16:00 Visit Stop Time 16:50 Total Visit Minutes 50 Visit Number 9 PT-OP-B Current Condition Start: 11/10/17 17:08 Freq: Status: Active Protocol: Document 11/10/17 17:09 EA (Rec: 11/10/17 17:22 EA [id number]) Current Condition History of Current Condition Onset Date 6 months ago Current Complaints Difficulty with lifting d/t localized low back pain rated 4/10 History of Current Condition Pt reports low back pain gradually started after lifting injury; states pain intensifies when lifting frequency increases. Patient reports pain managed with resting; denies use of heating or cold compress. Patient reports no diganostic imaging since the pain started. Debies BLE loss of strength and abnormal sensation Pt medical history includes: Cronic neck pain, controlled HTN, depression. Prior Treatments and Tests None Future Testing and Treatments Planned None Treatment Goals Patient/Caregiver Goals Patient wants to be able to perform daily task without back pain. Prior Functional Status Baseline Function- ADL's Independent Baseline Function- Mobility Independent Baseline Function- Other 6 months ago able to perform daily task without pain complaint Current Functional Impairments (Reported) Functional Limitations- ADL's Lifitng, sitting tolerance Functional Limitations- Other mild/mod difficulty with lifting Personal Factors Other Personal Factors That May Effect Language barrier that requires Therapy/Recovery city editor; Daughter to come in to help during session. Depression. PT-OP-C Subjective Start: 11/10/17 17:08 Freq: Status: Active Protocol: Document 01/07/18 16:29 EA (Rec: 01/07/18 16:39 EA [id number]) OP-PT Subjective Patient Comments Patient Comments Patient arrived with no [place] city editor; states pain is pukito which slight. PT-OP-J Posture/Palpation/Skin Start: 11/10/17 17:08 Freq: Status: Active Protocol: Document 11/10/17 17:09 EA (Rec: 11/10/17 17:39 EA [id number]) Posture Evaluation Position Standing L-Spine Posture Flattened Palpation Assessment Location One Palpation Location Paralumbars, QL Palpation Findings Soft Tissue Tightness Spasm Tenderness PT-OP-K Range of Motion Start: 11/10/17 17:08 Freq: Status: Active Protocol: Document 11/10/17 17:09 EA (Rec: 11/10/17 17:39 EA [id number]) Lumbar Spine Range of Motion Lumbar Spine Active Testing Position standing Flexion 40 Extension 20 Rotation Left 35 Rotation Right 35 Lateral Flexion Left 25 Lateral Flexion Right 25 ROM Limitations Soft Tissue Tightness Pain PT-OP-L Special Tests Start: 11/10/17 17:08 Freq: Status: Active Protocol: Document 11/10/17 17:09 EA (Rec: 11/10/17 17:39 EA [id number]) Special Tests Lumbar Spine Special Tests Other- 1 Test Results pain aggravates with prone active ext/ standing bending FWD Straight Leg Raise Test Results Pain increased at 75deg to low back bilat Vertical Spine Loading Test Results negative PT-OP-M Strength Start: 11/10/17 17:08 Freq: Status: Active Protocol: Document 11/10/17 17:09 EA (Rec: 11/10/17 17:39 EA [id number]) Trunk Strength Trunk Manual Muscle Testing Flexion 4- Good- Extension 3+ Fair+ Rotation Left 4 Good Rotation Right 4 Good Lateral Flexion Left 3+ Fair+ Lateral Flexion Right 3+ Fair+ Comments Strength test is limited by pain and therefore test is bias Hip Strength Hip Manual Muscle Testing Right Reason Not Measured WFL Left Reason Not Measured WFL PT-OP-Q Treatments Start: 11/10/17 17:08 Freq: Status: Active Protocol: Document 01/07/18 16:29 EA (Rec: 01/07/18 16:39 EA [id number]) Cardio Equipment Recumbent Stepper (Sci-Fit) Duration (Minutes) 6 Resistance 1 Seat Position 8 Other warmup Therapeutic Exercises Supine Exercises 5 Supine Exercise Name Lower trunk rotation with knee bent Side bilateral Reps/Minutes x 10 reps 4 Supine Exercise Name PPT with partial sit up with single leg raises Reps/Minutes x 5SH x 5 reps Comments HEP 3 Supine Exercise Name PPT and marching Reps/Minutes x 5SH x 5 reps Comments HEP 2 Supine Exercise Name Partial sit up with PPT 1 Supine Exercise Name SKTC to DKTC Reps/Minutes x 5 SH x 5 reps Comments HEP Prone Exercises 2 Prone Exercise Name Winston extnsion alternate Reps/Minutes x 10 reps x 2 sets Standing Exercises 3 Standing Exercise Name floor to waist lift Resistance 20-30lbs Reps/Minutes x 5 x 2 sets 2 Standing Exercise Name wall squat with PPT Reps/Minutes x 5sh x 5 reps x 2 sets Manual Therapy Treatment Soft Tissue Mobilization 1 Body Location Right upper lumbars and low parathoracis Mobilization Type Myofascial Release Sustained Pressure Intensity/Depth Moderate Body Position Prone PT-OP-R Modalities Start: 11/10/17 17:08 Freq: Status: Active Protocol: Document 01/07/18 16:29 EA (Rec: 01/07/18 16:39 EA [id number]) Electric Stimulation Electric Stimulation Interferential Current (IFC) Body Location paralumbars Duration (Minutes) 15 Patient Position Prone Combined With Heat/Cold Hot Pack Comments pillow under stomach Hot Pack/Cold Pack Treatment Hot Pack Location Praalumbars and low thoracic Patient Position Prone Treatment Duration (minutes) 10 Patient Tolerance Good PT-OP-T Assessment and Plan Start: 11/10/17 17:08 Freq: Status: Active Protocol: Document 01/07/18 16:29 EA (Rec: 01/07/18 16:39 EA [id number]) Physical Therapy Assessment Goals Four Impairment Minimal understanding with proper body mechanics and changing position Water Softener Service Supervisor Goal (LTG) Patient will exhibit high understanding with proper body mechanics in lifting and changing position LTG Duration met Three Impairment Grade 2 tenderness to paralumbars, QL Water Softener Service Supervisor Goal (LTG) Patient will exhibit No tenderness to lower back to improve functional mobility LTG Duration met Two Impairment Less than 10 minutes sitting tolerance Long-Term Goal (LTG) Patient will increase sitting tolerance to > 20 minutes with minimal to no pain LTG Duration met One Impairment Difficulty with floor to waist lifting due to low back pain PS of 4/10 Long-Term Goal (LTG) Patient will perform floor - waist lifting < 10 lbs w/ proper mechanics with less than 2/10 pain scale LTG Duration met Assessment Summary Assessment Pt discharge today after reaching goals. Patient able to perform all therex without showing any signs of discomfort. Patient was recommended to discharge today . Animal Pathology Teacher able to translate last session to Mozambican with the help of [place]ican patient. Physical Therapy Plan Discharge Physical Therapy Discharge Reasons Goals Met
--- NOTE | 2018-01-07 16:42 | PT.OPDS ---
Current Diagnoses Strain of muscle, fascia and tendon of lower back, initial encounter (01/07/18) Provider Visit Care Team Role Provider Type Krysten Aceves MD Attending Provider Non-Staff Family Provider Primary Care Provider Specialty: Medical Address: [place], [address] Email: Visit Number Visit Number 9 Discharge Summary PT-OP-B Current Condition Start: 11/10/17 17:08 Freq: Status: Active Protocol: Document 11/10/17 17:09 EA (Rec: 11/10/17 17:22 EA [id number]) Current Condition History of Current Condition Onset Date 6 months ago Current Complaints Difficulty with lifting d/t localized low back pain rated 4/10 History of Current Condition Pt reports low back pain gradually started after lifting injury; states pain intensifies when lifting frequency increases. Patient reports pain managed with resting; denies use of heating or cold compress. Patient reports no diganostic imaging since the pain started. Debies BLE loss of strength and abnormal sensation Pt medical history includes: Cronic neck pain, controlled HTN, depression. Prior Treatments and Tests None Future Testing and Treatments Planned None Treatment Goals Patient/Caregiver Goals Patient wants to be able to perform daily task without back pain. Prior Functional Status Baseline Function- ADL's Independent Baseline Function- Mobility Independent Baseline Function- Other 6 months ago able to perform daily task without pain complaint Current Functional Impairments (Reported) Functional Limitations- ADL's Lifitng, sitting tolerance Functional Limitations- Other mild/mod difficulty with lifting Personal Factors Other Personal Factors That May Effect Language barrier that requires Therapy/Recovery retail sales advisor; Daughter to come in to help during session. Depression. 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 PT-OP-J Posture/Palpation/Skin Start: 11/10/17 17:08 Freq: Status: Active Protocol: Document 11/10/17 17:09 EA (Rec: 11/10/17 17:39 EA [id number]) Posture Evaluation Position Standing L-Spine Posture Flattened Palpation Assessment Location One Palpation Location Paralumbars, QL Palpation Findings Soft Tissue Tightness Spasm Tenderness PT-OP-K Range of Motion Start: 11/10/17 17:08 Freq: Status: Active Protocol: Document 11/10/17 17:09 EA (Rec: 11/10/17 17:39 EA [id number]) Lumbar Spine Range of Motion Lumbar Spine Active Testing Position standing Flexion 40 Extension 20 Rotation Left 35 Rotation Right 35 Lateral Flexion Left 25 Lateral Flexion Right 25 ROM Limitations Soft Tissue Tightness Pain PT-OP-L Special Tests Start: 11/10/17 17:08 Freq: Status: Active Protocol: Document 11/10/17 17:09 EA (Rec: 11/10/17 17:39 EA [id number]) Special Tests Lumbar Spine Special Tests Other- 1 Test Results pain aggravates with prone active ext/ standing bending FWD Straight Leg Raise Test Results Pain increased at 75deg to low back bilat Vertical Spine Loading Test Results negative PT-OP-M Strength Start: 11/10/17 17:08 Freq: Status: Active Protocol: Document 11/10/17 17:09 EA (Rec: 11/10/17 17:39 EA [id number]) Trunk Strength Trunk Manual Muscle Testing Flexion 4- Good- Extension 3+ Fair+ Rotation Left 4 Good Rotation Right 4 Good Lateral Flexion Left 3+ Fair+ Lateral Flexion Right 3+ Fair+ Comments Strength test is limited by pain and therefore test is bias Hip Strength Hip Manual Muscle Testing Right Reason Not Measured WFL Left Reason Not Measured WFL PT-OP-T Assessment and Plan Start: 11/10/17 17:08 Freq: Status: Active Protocol: Document 01/07/18 16:29 EA (Rec: 01/07/18 16:39 EA [id number]) Physical Therapy Assessment Goals Four Impairment Minimal understanding with proper body mechanics and changing position Knitting Supervisor Goal (LTG) Patient will exhibit hig understanding with proper body mechanics in lifting and changing position LTG Duration met Three Impairment Grade 2 tenderness to paralumbars, QL Mcfp Goal (LTG) Patient will exhibit No tenderness to lower back to improve functional mobility LTG Duration met Two Impairment Less than 10 minutes sitting tolerance Knitting Supervisor Goal (LTG) Patient will increase sitting tolerance to > 20 minutes with minimal to no pain LTG Duration met One Impairment Difficulty with floor to waist lifting due to low back pain PS of 4/10 Knitting Supervisor Goal (LTG) Patient will perform floor - waist lifting < 10 lbs w/ proper mechanics with less than 2/10 pain scale LTG Duration met Assessment Summary Assessment Pt discharge today after reaching goals. Patient able to perform all therex without showing any signs of discomfort. Patient was recommended to discharge today . Compliance Professional able to translate last session to Italian with the help of Italian patient. Physical Therapy Plan Discharge Physical Therapy Discharge Reasons Goals Met
== END 2018-01-29 15:25 ==
LOC: PHYS 16:00
PROVIDERS: Family Provider Family Medicine; PCP Family Medicine; Visit Provider Family Medicine
DX: S39.012A Strain of muscle, fascia and tendon of lower back, initial encounter (principal)
CPT/HCPCS: 97010; 97014; 97110; 97140; 97161; 97535; G0283